=== PATIENT | male | born 1975 | race Caucasian/White ===

== ENCOUNTER 2022-05-18 15:01 | Inpatient (IN) | payer OTHER ==
[~2022-05-18] VITALS: Ht 182.9 cm; Wt 109.5 kg
[2022-05-18] VITALS (8 sets, daily range): BP systolic 131–162
[2022-05-18 16:08] LABS: BILIRUBIN,URINE NEGATIVE (NEGATIVE); BLOOD, URINE 1+ (NEGATIVE); CLARITY/URINE CLEAR (CLEAR); COLOR,URINE YELLOW (YELLOW); GLUCOSE,URINE NEGATIVE (NEGATIVE); KETONES,URINE 3+ (NEGATIVE); LEUKOCYTE ESTERASE ,URINE NEGATIVE (NEGATIVE); NITRITE, URINE NEGATIVE (NEGATIVE); PH,URINE 6.5 (5.0-8.0); PROTEIN URINE NEGATIVE (NEGATIVE); UROBILINOGEN,URINE 0.2 (0.2-1.0)
[2022-05-18 16:12] LABS: BASOPHILS % (AUTO) 0.2 % (0.0-2.0); EOSINOPHILS # (AUTO) 0.1 K/uL (0.0-0.4); EOSINOPHILS % (AUTO) 0.4 % (0.0-4.0); HEMATOCRIT 39.5 % (36-54); HEMOGLOBIN 13.2 g/dL (14.0-18.0); LYMPHOCYTES # (AUTO) 1.6 K/uL (1.0-5.5); LYMPHOCYTES % (AUTO) 13.1 % (20.5-51.5); MEAN CORPUSCULAR HEMOGLOBIN 29 pg (27-31); MEAN CORPUSCULAR HGB CONC 33 % (32-36); MEAN CORPUSCULAR VOLUME 87 fL (79.0-98.0); MONOCYTES % (AUTO) 8.8 % (1.7-9.3); NEUTROPHILS # (AUTO) 9.1 K/uL (1.8-7.7); NEUTROPHILS % (AUTO) 77.5 % (40.0-70.0); PLATELET COUNT (AUTO) 270 K/uL (130-430); RED BLOOD CELL COUNT(AUTO) 4.53 MIL/uL (4.2-6.2); RED CELL DISTRIBUTION WIDTH 15.2 % (9.0-15.0); WHITE BLOOD COUNT (AUTO) 11.8 K/uL (4.8-10.8)
[2022-05-18] MEDS ORDERED: NACL 0.9% 1,000 ML IV ONE ×2 (16:15→16:30)
[2022-05-18] MEDS ORDERED: PIPERACILLIN/TAZO 3.375 GM in NS 50 ML IV ONE (16:30)
[2022-05-18] MEDS ORDERED: metroNIDAZOLE 500 mg/NS 100 ML IV ONE (16:30)
[2022-05-18 16:34] LABS: BACTERIA,URINE RARE /HPF (None Seen); MUCUS,URINE None Seen /LPF (None Seen); RBC,URINE 0-3 /HPF (0-3); WBC,URINE 0-3 /HPF (0-3)
[2022-05-18 16:35] LABS: ANION GAP 12 (5-15); CALCIUM 9.5 mg/dL (8.4-11.0); CHLORIDE 99 mmol/L (98-107); CREATININE 1.13 mg/dL (0.55-1.30); GLUCOSE 103 mg/dL (70-99); UREA NITROGEN, BLOOD 13 mg/dL (8-21)
[2022-05-18 16:36] LABS: GFR AFRICAN AMERICAN 89 mL/min (>90)
[2022-05-18 16:38] LABS: ALANINE AMINOTRANSFERASE 17 U/L (12-78); ALBUMIN 3.5 g/dL (3.4-4.8); AMYLASE 40 U/L (0-100); ASPARTATE AMINOTRANSFERASE 10 U/L (10-37); LACTATE DEHYDROGENASE 118 U/L (85-227); LIPASE 94 U/L (73-393); TOTAL BILIRUBIN 0.5 mg/dL (0.0-1.0)
[2022-05-18] MEDS ORDERED: PIPERACILLIN/TAZOBACTAM 3.375 GM/VIAL (ZOSYN) IV ONE (16:44)
[2022-05-18] MEDS: MORPHINE 4 MG INJ. 4 MG/ML VIAL IVP ONE ×2 (16:52→17:39)
[2022-05-18 16:53] LABS: ACETONE, SERUM TRACE (NEGATIVE)
[2022-05-18] MEDS: ONDANSETRON HCL 4 MG/2 ML VIAL IVP ONE ×2 (16:53→17:38)
[2022-05-18 16:57] LABS: C-REACTIVE PROTEIN QUANT 15.8 mg/dL (0-0.5)
[2022-05-18] MEDS ORDERED: ONDANSETRON HCL 4 MG/2 ML VIAL IVP PRN ×3 (17:15→19:00)
[2022-05-18] MEDS ORDERED: LR 1,000 ML IV ONE (17:15)
[2022-05-18] MEDS ORDERED: LOSA50TA28 PO (17:24)
[2022-05-18] MEDS ORDERED: NEU300 PO (17:24)
[2022-05-18] MEDS ORDERED: ACYC400T19 PO ×2 (17:24)
[2022-05-18] MEDS ORDERED: LORA10TA7 PO (17:24)
[2022-05-18] MEDS ORDERED: LAMO150T2 PO (17:24)
[2022-05-18] MEDS ORDERED: LEVO100T PO (17:24)
[2022-05-18] MEDS ORDERED: PRO40 PO (17:24)
[2022-05-18] MEDS ORDERED: MORPHINE 2 MG/ML INJ. SYRINGE IVP PRN ×3 (17:30→18:45)
[2022-05-18 17:55] LABS: PROTHROMBIN TIME 9.7 SECS (9.5-12.5)
[2022-05-18] MEDS ORDERED: ACETAMINOPHEN 325 MG TABLET PO PRN ×2 (18:45→19:15)
[2022-05-18] MEDS ORDERED: DOCUSATE SODIUM 100 MG CAPSULE PO PRN (18:45)
[2022-05-18] MEDS ORDERED: NALOXONE HCL 0.4 MG/ML AMP (NARCAN) IVP PRN ×2 (18:45)
[2022-05-18] MEDS ORDERED: MUPIROCIN 2% TOPICAL OINTMENT 22 GM NS PRN (18:45)
[2022-05-18] MEDS ORDERED: MAGNESIUM SULFATE 50 ML IV PRN (18:45)
[2022-05-18] MEDS ORDERED: POTASSIUM CHLORIDE 20 MEQ TAB.PRT.SR PO PRN (18:45)
[2022-05-18] MEDS ORDERED: ZOLPIDEM TARTRATE 5 MG TABLET PO PRN (18:45)
[2022-05-18] MEDS ORDERED: LORazepam 2 MG/ML VIAL IVP PRN (18:45)
[2022-05-18] MEDS ORDERED: METOCLOPRAMIDE HCL 10 MG/2 ML VIAL IVP PRN (19:00)
[2022-05-18] MEDS ORDERED: fentaNYL CITRATE/PF 100 MCG/2 ML AMP IVP PRN ×2 (19:00)
[2022-05-18] MEDS ORDERED: MIDAZOLAM HCL 5 MG/ML VIAL (VERSED) IV ONE (20:05)
[2022-05-18] MEDS ORDERED: ONDANSETRON HCL 4 MG/2 ML VIAL ONE (20:05)
[2022-05-18] MEDS ORDERED: PROPOFOL 200MG/ 20ML VIAL (DIPRIVAN) IV ONE (20:05)
[2022-05-18] MEDS ORDERED: SEVOFLURANE 15 MIN GAS INH ONE (20:05)
[2022-05-18] MEDS ORDERED: NS 1000 ML IV.SOLN IV ONE (20:05)
[2022-05-18] MEDS ORDERED: LR 1,000 ML IV.SOLN IV ONE (20:05)
[2022-05-18] MEDS ORDERED: NEOSTIGMINE METHYLSULFATE 1 MG/ML, 10 ML VIAL ONE (20:05)
[2022-05-18] MEDS ORDERED: ROCURONIUM BROMIDE 10 MG/ML (ZEMURON) ONE (20:05)
[2022-05-18] MEDS ORDERED: GLYCOPYRROLATE 0.2 MG/ML VIAL ONE (20:05)
[2022-05-18] MEDS ORDERED: fentaNYL CITRATE/PF 100 MCG/2 ML AMP ONE (20:05)
[2022-05-18] MEDS ORDERED: BUPIVACAINE /EPINEPHRINE/PF 0.5% 30 ML VIAL INJ ONE (20:05)
[2022-05-18] MEDS ORDERED: WATER FOR IRRIGATION,STERILE 1,000 ML IRRIG.SOLN IR ONE (20:05)
[2022-05-18] MEDS ORDERED: HYDROcodone/ACETAMIN 5-325 MG TAB (NORCO/ VICODIN) PO PRN (20:30)
[2022-05-18] MEDS: fentaNYL CITRATE/PF 100 MCG/2 ML AMP ONE ×2 (20:51→21:06)
[2022-05-18] MEDS: NORMAL SALINE 5 ML DISP.SYRIN IVF SCH (22:25)
[2022-05-18] MEDS: GABAPENTIN 300 MG CAPSULE PO SCH (23:39)
[2022-05-18] MEDS: LamoTRIgine 100 MG TABLET PO SCH (23:40)
[2022-05-18] MEDS: LOSARTAN POTASSIUM 50 MG TABLET (COZAAR) PO SCH (23:41)
[2022-05-19 00:45] VITALS: BP_SYST 141
[2022-05-19 04:00] VITALS: BP_SYST 145
[2022-05-19 06:25] LABS: BASOPHILS % (AUTO) 0.2 % (0.0-2.0); EOSINOPHILS % (AUTO) 0.3 % (0.0-4.0); HEMATOCRIT 34.4 % (36-54); HEMOGLOBIN 11.8 g/dL (14.0-18.0); LYMPHOCYTES # (AUTO) 0.9 K/uL (1.0-5.5); LYMPHOCYTES % (AUTO) 9.2 % (20.5-51.5); MEAN CORPUSCULAR HEMOGLOBIN 30 pg (27-31); MEAN CORPUSCULAR HGB CONC 34 % (32-36); MEAN CORPUSCULAR VOLUME 87 fL (79.0-98.0); MONOCYTES # (AUTO) 0.7 K/uL (0.0-1.0); MONOCYTES % (AUTO) 6.9 % (1.7-9.3); NEUTROPHILS # (AUTO) 8.2 K/uL (1.8-7.7); NEUTROPHILS % (AUTO) 83.4 % (40.0-70.0); PLATELET COUNT (AUTO) 235 K/uL (130-430); RED BLOOD CELL COUNT(AUTO) 3.95 MIL/uL (4.2-6.2); RED CELL DISTRIBUTION WIDTH 15.3 % (9.0-15.0); WHITE BLOOD COUNT (AUTO) 9.8 K/uL (4.8-10.8)
[2022-05-19] MEDS: LEVOTHYROXINE SODIUM 0.1 MG TABLET PO SCH (06:45)
[2022-05-19] MEDS: NORMAL SALINE 5 ML DISP.SYRIN IVF SCH ×3 (06:46→22:19)
[2022-05-19 06:52] LABS: CALCIUM 8.1 mg/dL (8.4-11.0); CREATININE 0.91 mg/dL (0.55-1.30)
[2022-05-19 07:35] VITALS: BP_SYST 142
[2022-05-19] MEDS ORDERED: HYDR-3917 PO (08:36)
[2022-05-19] MEDS: METOPROLOL TARTRATE 25 MG TABLET PO SCH ×2 (08:39→22:18)
[2022-05-19] MEDS ORDERED: LOSARTAN POTASSIUM 50 MG TABLET (COZAAR) PO SCH (09:00)
[2022-05-19] MEDS ORDERED: LamoTRIgine 100 MG TABLET PO SCH (09:00)
[2022-05-19] MEDS: ACYCLOVIR 400 MG TABLET PO SCH (10:39)
[2022-05-19 11:24] VITALS: BP_SYST 138
[2022-05-19] MEDS ORDERED: METR-154 PO (15:44)
[2022-05-19] MEDS ORDERED: AMOX-423 PO (15:44)
[2022-05-19 15:54] VITALS: BP_SYST 159
[2022-05-19] MEDS: PIPERACILLIN/TAZO 3.375/DEX-IS 50 ML IV SCH (17:27)
[2022-05-19 20:00] VITALS: BP_SYST 149
[2022-05-19] MEDS ORDERED: GABAPENTIN 300 MG CAPSULE PO SCH (21:00)
[2022-05-19] MEDS ORDERED: ACYCLOVIR 400 MG TABLET PO SCH (21:00)
[2022-05-19] MEDS: LOSARTAN POTASSIUM 50 MG TABLET (COZAAR) PO SCH (22:16)
[2022-05-19] MEDS: LamoTRIgine 100 MG TABLET PO SCH (22:17)
[2022-05-19] MEDS: GABAPENTIN 300 MG CAPSULE PO SCH (22:18)
[2022-05-20] VITALS: BP_SYST 156
[2022-05-20] MEDS: PIPERACILLIN/TAZO 3.375/DEX-IS 50 ML IV SCH ×3 (00:42→11:49)
[2022-05-20] MEDS: LEVOTHYROXINE SODIUM 0.1 MG TABLET PO SCH (06:42)
[2022-05-20] MEDS: NORMAL SALINE 5 ML DISP.SYRIN IVF SCH (06:55)
[2022-05-20 08:00] VITALS: BP_SYST 141
[2022-05-20 08:32] LABS: CALCIUM 8.6 mg/dL (8.4-11.0); CREATININE 0.86 mg/dL (0.55-1.30)
[2022-05-20 08:39] LABS: BASOPHILS % (AUTO) 0.4 % (0.0-2.0); EOSINOPHILS # (AUTO) 0.2 K/uL (0.0-0.4); EOSINOPHILS % (AUTO) 2.5 % (0.0-4.0); HEMATOCRIT 35.6 % (36-54); HEMOGLOBIN 12.1 g/dL (14.0-18.0); LYMPHOCYTES # (AUTO) 1.1 K/uL (1.0-5.5); LYMPHOCYTES % (AUTO) 13.3 % (20.5-51.5); MEAN CORPUSCULAR HEMOGLOBIN 30 pg (27-31); MEAN CORPUSCULAR HGB CONC 34 % (32-36); MEAN CORPUSCULAR VOLUME 88 fL (79.0-98.0); MONOCYTES # (AUTO) 0.6 K/uL (0.0-1.0); MONOCYTES % (AUTO) 7.9 % (1.7-9.3); NEUTROPHILS # (AUTO) 6.1 K/uL (1.8-7.7); NEUTROPHILS % (AUTO) 75.9 % (40.0-70.0); PLATELET COUNT (AUTO) 262 K/uL (130-430); RED BLOOD CELL COUNT(AUTO) 4.06 MIL/uL (4.2-6.2); RED CELL DISTRIBUTION WIDTH 15.2 % (9.0-15.0)
[2022-05-20] MEDS: ACYCLOVIR 400 MG TABLET PO SCH (09:22)
[2022-05-20] MEDS: METOPROLOL TARTRATE 25 MG TABLET PO SCH (09:22)
[2022-05-20 11:17] VITALS: BP_SYST 134
[2022-05-20 11:29] VITALS: BP_SYST 134
== END 2022-05-20 13:00 | disposition home or self-care (01) | DRG 853 ==
LOC: SED 15:01 → SMU 17:29
PROVIDERS: ADMIT General Practice; ATTEND General Practice
PROC: 0W9G4ZZ Drainage of Peritoneal Cavity, Percutaneous Endoscopic Approach (ICD-10-PCS; 2022-05-18)
PROC: 0DTJ4ZZ Resection of Appendix, Percutaneous Endoscopic Approach (ICD-10-PCS; principal; 2022-05-18 18:30)
DX: A41.9 Sepsis, unspecified organism (principal); K35.33 Acute appendicitis with perforation, localized peritonitis, and gangrene, with abscess; C90.00 Multiple myeloma not having achieved remission; Z94.84 Stem cells transplant status; K40.90 Unilateral inguinal hernia, without obstruction or gangrene, not specified as recurrent; Z20.822 Contact with and (suspected) exposure to COVID-19; Z79.899 Other long term (current) drug therapy
CPT/HCPCS: 36415; 71045; 76376; 80048; 80053; 81000; 82009; 82150; 83036; 83605; 83615; 83690; 83735; 84443; 85025; 85610-TC; 85730-TC; 86140; 86870; 86886; 86900; 86901; 87040; 87081; 88304; 93005; 96361; 96365; 96368; 96375; 99285; C1727; J2250; J2270; J2405; J2543; J2704; J2710; J3010; J3490; J7030; J7120

== ENCOUNTER 2023-06-23 03:02 | Emergency (ER) | payer BC, OTHER ==
[~2023-06-23] VITALS: Ht 182.9 cm; Wt 99.8 kg
[~2023-06-23 03:02] MED LIST: ACYC400T19 PO; AMOX-423 PO; HYDR-3917 PO; LAMO150T2 PO; LEVO100T PO; LORA10TA7 PO; LOSA50TA28 PO; METR-154 PO; NEU300 PO; PRO40 PO
[2023-06-23 03:05] VITALS: BP_SYST 174; PULSE 83; RESP 12; TEMP 97.4; O2SAT 98
[2023-06-23 04:25] LABS: BASOPHILS % (AUTO) 0.6 % (0.0-2.0); EOSINOPHILS # (AUTO) 0.2 K/uL (0.0-0.4); EOSINOPHILS % (AUTO) 3.8 % (0.0-4.0); HEMATOCRIT 41.2 % (36-54); HEMOGLOBIN 14.1 g/dL (14.0-18.0); LYMPHOCYTES # (AUTO) 1.3 K/uL (1.0-5.5); LYMPHOCYTES % (AUTO) 24.6 % (20.5-51.5); MEAN CORPUSCULAR HEMOGLOBIN 30 pg (27-31); MEAN CORPUSCULAR HGB CONC 34 % (32-36); MEAN CORPUSCULAR VOLUME 88 fL (79.0-98.0); MONOCYTES # (AUTO) 0.5 K/uL (0.0-1.0); MONOCYTES % (AUTO) 8.4 % (1.7-9.3); NEUTROPHILS # (AUTO) 3.4 K/uL (1.8-7.7); NEUTROPHILS % (AUTO) 62.6 % (40.0-70.0); PLATELET COUNT (AUTO) 183 K/uL (130-430); RED BLOOD CELL COUNT(AUTO) 4.71 MIL/uL (4.2-6.2); RED CELL DISTRIBUTION WIDTH 15.9 % (9.0-15.0); WHITE BLOOD COUNT (AUTO) 5.4 K/uL (4.8-10.8)
[2023-06-23 04:33] LABS: CALCIUM 9.1 mg/dL (8.4-11.0); CREATININE 1.11 mg/dL (0.55-1.30); POTASSIUM 3.7 mmol/L (3.5-5.1)
[2023-06-23] MEDS: hydrALAZINE HCL 20 MG/ML VIAL IVP ONE (04:38)
[2023-06-23 04:39] LABS: ALBUMIN 3.6 g/dL (3.4-4.8); BILIRUBIN,DIRECT 0.1 mg/dL (0.0-0.3); TOTAL BILIRUBIN 0.3 mg/dL (0.0-1.0); TOTAL PROTEIN, SERUM 6.6 g/dL (6.4-8.3)
[2023-06-23 05:21] LABS: BILIRUBIN,URINE NEGATIVE (NEGATIVE); BLOOD, URINE NEGATIVE (NEGATIVE); CLARITY/URINE CLEAR (CLEAR); COLOR,URINE YELLOW (YELLOW); GLUCOSE,URINE NEGATIVE (NEGATIVE); KETONES,URINE NEGATIVE (NEGATIVE); LEUKOCYTE ESTERASE ,URINE NEGATIVE (NEGATIVE); NITRITE, URINE NEGATIVE (NEGATIVE); PH,URINE 6.5 (5.0-8.0); PROTEIN URINE NEGATIVE (NEGATIVE); UROBILINOGEN,URINE 0.2 (0.2-1.0)
[2023-06-23 06:27] VITALS: BP_SYST 161; PULSE 76; RESP 12; TEMP 97.4; O2SAT 98
== END 2023-06-23 06:15 | disposition home or self-care (01) ==
LOC: SED 03:02
DX: T80.89XA Other complications following infusion, transfusion and therapeutic injection, initial encounter (principal); R06.02 Shortness of breath; I10 Essential (primary) hypertension; Y70.1 Therapeutic (nonsurgical) and rehabilitative anesthesiology devices associated with adverse incidents
CPT/HCPCS: 99284; 96374; 71045; 80076; 80048; 81001; 85025; 87040; 36415; 93005; 83605; 82397; J0360; 81003

== ENCOUNTER 2023-07-19 18:58 | Emergency (ER) | payer BC ==
[~2023-07-19] VITALS: Ht 182.9 cm; Wt 102.1 kg
[2023-07-19 19:05] VITALS: BP_SYST 152; PULSE 88; RESP 16; TEMP 97.8; O2SAT 99
[2023-07-19 21:18] VITALS: BP_SYST 152; PULSE 88; RESP 16; TEMP 97.8; O2SAT 99
== END 2023-07-19 21:18 | disposition home or self-care (01) ==
LOC: SED 18:58
DX: T78.40XA Allergy, unspecified, initial encounter (principal); I10 Essential (primary) hypertension; F31.9 Bipolar disorder, unspecified; Z90.49 Acquired absence of other specified parts of digestive tract; X58.XXXA Exposure to other specified factors, initial encounter; Y92.89 Other specified places as the place of occurrence of the external cause
CPT/HCPCS: 99282